=== PATIENT | female | born 1940 | race Caucasian/White ===

== ENCOUNTER → 2017-01-05 | Outpatient (CLI) | payer MEDICARE, OTHER ==
--- NOTE | 2017-01-05 17:41 | RADRPT ---
PROCEDURE: CT Brain without contrast. CLINICAL INDICATION: Headache and dizziness. TECHNIQUE: A CT of the brain without contrast was performed utilizing axial sections from the skul l base through the vertex. The patient was scanned without intravenous contrast enhancement. Sagitta l and coronal reformatted images were obtained using the data from the axial images. Total exam DLP is 630.20 mGy-cm. CTDIvol is 44.63 mGy. One or more of the following dose reduction techniques we re used: Automated exposure control, adjustment of the mA and/or kV according to patient size, use o f iterative reconstruction technique. COMPARISON: None available FINDINGS: There is normal nettles-white matter differentiation. The ventricles and cisterns are normal. There is a midline posterior fossa arachnoid cyst measuring approximately 2.8 x 5.5 cm in AP and transverse dimensions with mild mass effect. There is no intracranial hemorrhage or space-occupying lesion. There is no skull fracture or lytic lesion. IMPRESSION: 1. 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 2. Otherwise unremarkable noncontrast CT scan of the brain. RPTAT: QQ .Joseph Terrell MD, Date Time Electronically viewed and signed by .Joseph Terrell MD, on 01/05/2017 17:41 .R/
== END | disposition home or self-care (01) ==
LOC: C/S 10:58
PROVIDERS: ATTEND Internal Medicine
DX: R51 Headache (principal); R42 Dizziness and giddiness
CPT/HCPCS: 70450